=== PATIENT | male | born 1970 | race Caucasian/White ===

== ENCOUNTER 2021-03-27 20:11 | Inpatient (IN) | payer MEDICAID ==
[~2021-03-27] VITALS: Ht 182.9 cm; Wt 90.9 kg
[~2021-03-27 20:11] MED LIST: BACDS PO; CYCL-1 PO; HYDR-3965 PO; HYDR-4383 PO; HYDR1TAB PO; NO HOME MEDS; NORCO10T PO
--- NOTE | 2021-03-27 20:46 | NUR ---
Pt presents d/t sob, slurred speach, and left arm numbness x 3 days. Pt states "I got drunk 3 days ago and it messed me up." Pt AAOx4, no s/sx of acute distress noted at this time. Respirations even and unlabored. Will continue to monitor.
[2021-03-27 21:14] LABS: BASOPHILS # (AUTO) 0.1 X10'3 (0-0.2); BASOPHILS % (AUTO) 0.9 % (0-1); EOSINOPHILS # (AUTO) 0.2 X10'3 (0-0.9); HEMATOCRIT 51.8 % (42.0-52.0); HEMOGLOBIN 17.4 g/dl (14.0-17.9); LYMPHOCYTES # (AUTO) 2.2 X10'3 (1.1-4.8); LYMPHOCYTES % (AUTO) 25.7 % (21-51); MEAN CORPUSCULAR HGB CONC 33.6 g/dL (33.0-36.5); MEAN CORPUSCULAR VOLUME 95.5 FL (78-98); MEAN PLATELET VOLUME 8.1 FL (7.4-10.4); MONOCYTES # (AUTO) 1.1 X10'3 (0-0.9); MONOCYTES % (AUTO) 12.5 % (2-12); NEUTROPHILS % (AUTO) 58.9 % (42-75); PLATELET COUNT 288 X10'3 (140-440); RED BLOOD COUNT 5.42 X10'6 (4.70-6.10); RED CELL DISTRIBUTION WIDTH 13.9 % (11.5-14.5); WHITE BLOOD COUNT 8.5 X10'3 (4.5-11.0)
[2021-03-27 21:35] LABS: ALANINE AMINOTRANSFERASE 362 U/L (12-78); ALBUMIN 4.2 G/DL (3.4-5.0); ALBUMIN/GLOBULIN RATIO 1.1 (1.1-1.5); ALKALINE PHOSPHATASE 83 IU/L (46-116); ANION GAP 13 (8-16); ASPARTATE AMINO TRANSFERASE 214 U/L (10-37); BILIRUBIN,TOTAL 1.5 MG/DL (0.1-1.0); BLOOD UREA NITROGEN 20 MG/DL (7-18); BUN/CREATININE RATIO 17.1 (5.4-32.0); CALCIUM 9.6 MG/DL (8.5-10.1); CHLORIDE 104 MMOL/L (99-107); CREATININE 1.17 MG/DL (0.60-1.10); GLUCOSE 100 MG/DL (70-104); POTASSIUM 3.9 MMOL/L (3.5-5.1); SODIUM 141 MMOL/L (135-145); TOTAL CARBON DIOXIDE 23.9 MMOL/L (24-32); TOTAL PROTEIN 8.1 G/DL (6.4-8.2); eGFR 65 ML/MIN
--- NOTE | 2021-03-27 22:57 | NUR ---
BREAKING PRIMARY RN; WILL CONT TO MONITOR.
[2021-03-27] MEDS ORDERED: iohexol 350MG/ML 100ml bottle IV ONE (23:04)
[2021-03-27] MEDS ORDERED: atorvastatin 20mg tablet PO SCH (23:20)
[2021-03-27] MEDS ORDERED: aspirin 81mg tab.chew PO ONE (23:20)
[2021-03-27] MEDS ORDERED: atorvastatin 20mg tablet PO ONE (23:20)
[2021-03-27 23:41] LABS: CLARITY,URINE CLEAR (Clear); COLOR,URINE YELLOW (Yellow); GLUCOSE, URINE NEGATIVE (Neg); KETONES,URINE 40 mg/dl (Neg); LEUKOCYTE ESTERASE ,URINE NEGATIVE (Neg); NITRITES, URINE NEGATIVE (Neg); OCCULT BLOOD,URINE NEGATIVE (Neg); PROTEIN,URINE NEGATIVE (Neg); UA COLLECTION TYPE NON-SPECIFIED
[2021-03-28] VITALS (7 sets, daily range): BP systolic 139–167; BP diastolic 93–110
[2021-03-28] MEDS ORDERED: magnesium 2GM in 50ml NS 50 ML IV PRN (00:15)
[2021-03-28] MEDS ORDERED: acetaminophen 325mg tablet PO PRN (00:15)
[2021-03-28] MEDS ORDERED: mag hydrox/Alum hydrox/simeth 30ml oral suspension PO PRN (00:15)
[2021-03-28] MEDS ORDERED: ondansetron/PF 4mg/2ml inj IV PRN (00:15)
[2021-03-28] MEDS ORDERED: magnesium hydroxide 30ml (MOM) UD suspension PO PRN (00:15)
[2021-03-28] MEDS ORDERED: potassium Cl 20 mEq SR tablet PO PRN ×2 (00:15)
[2021-03-28] MEDS ORDERED: magnesium 4gm in 100ml NS 100 ML IV PRN (00:15)
[2021-03-28] MEDS ORDERED: potassium Cl 40MEQ/1/2NS 520ml 520 ML IV PRN ×2 (00:15)
--- NOTE | 2021-03-28 00:23 | NUR ---
BREAKING PRIMARY RN; WILL CONT TO MONITOR.
--- NOTE | 2021-03-28 00:40 | NUR ---
DR. HOLLEY AT BEDSIDE WITH PATIENT
[2021-03-28] MEDS ORDERED: haloperidol 5mg tablet PO PRN (01:20)
[2021-03-28] MEDS ORDERED: LORazepam 2 mg/ml vial IV PRN (01:20)
[2021-03-28] MEDS ORDERED: haloperidol lactate 5mg/ml inj IM PRN (01:20)
--- NOTE | 2021-03-28 06:30 | NUR ---
REPORT GIVEN TO PERCY WALTER.
[2021-03-28] MEDS: K and/or MAG REPLACEMENT MC SCH ×2 (08:00→20:00)
[2021-03-28] MEDS: aspirin 325mg tablet PO SCH (08:16)
[2021-03-28] MEDS: multivitamins, therapeutics tablet PO SCH (08:16)
[2021-03-28] MEDS: atorvastatin 20mg tablet PO SCH (08:16)
[2021-03-28] MEDS: thiamine 100mg tablet PO SCH (08:16)
[2021-03-28] MEDS: folic acid 1mg tablet PO SCH (08:16)
[2021-03-28 13:44] LABS: URINE AMPHETAMINE SCREEN POSITIVE (Neg); URINE BARBITUATE SCREEN NEGATIVE (Neg); URINE BENZODIAZEPINES SCREEN NEGATIVE (Neg); URINE CANNABINOID SCREEN POSITIVE (Neg); URINE COCAINE SCREEN NEGATIVE (Neg); URINE METHADONE SCREEN NEGATIVE (Neg); URINE OPIATE SCREEN NEGATIVE (Neg); URINE PHENCYCLIDINE SCREEN NEGATIVE (Neg)
--- NOTE | 2021-03-28 17:50 | NUR ---
Page to Dr Randall regarding elevated BP
--- NOTE | 2021-03-28 18:00 | NUR ---
Patient in room [facility]TH[facility] 4013. I have received report from Lakshmi GREER and had the opportunity to ask questions and assume patient care.
[2021-03-28] MEDS ORDERED: enoxaparin 40mg/0.4ml syringe SQ SCH (20:00)
--- NOTE | 2021-03-28 21:00 | NUR ---
glucose check 108
--- NOTE | 2021-03-29 00:17 | NUR ---
promotional table spacer PAGER ID: [phone] MESSAGE: Pt: Tanner Zarate Would you like to put something on PRN for pt's BP? Dav GREERhall manager/Neuro [id number]
[2021-03-29 02:00] VITALS: BP 154/104
[2021-03-29 05:29] VITALS: BP 141/98
--- NOTE | 2021-03-29 06:18 | NUR ---
Problems reprioritized. Patient report given, questions answered & plan of care reviewed with mary ellen lucas.
[2021-03-29 06:49] LABS: BASOPHILS % (AUTO) 0.6 % (0-1); EOSINOPHILS # (AUTO) 0.3 X10'3 (0-0.9); EOSINOPHILS % (AUTO) 3.7 % (0-6); HEMATOCRIT 49.6 % (42.0-52.0); HEMOGLOBIN 16.9 g/dl (14.0-17.9); LYMPHOCYTES # (AUTO) 1.8 X10'3 (1.1-4.8); LYMPHOCYTES % (AUTO) 24.2 % (21-51); MEAN CORPUSCULAR HEMOGLOBIN 32.1 PG (27.0-31.0); MEAN CORPUSCULAR HGB CONC 34.1 g/dL (33.0-36.5); MEAN CORPUSCULAR VOLUME 94.1 FL (78-98); MEAN PLATELET VOLUME 8.4 FL (7.4-10.4); MONOCYTES # (AUTO) 0.9 X10'3 (0-0.9); MONOCYTES % (AUTO) 11.7 % (2-12); NEUTROPHILS # (AUTO) 4.4 X10'3 (1.8-7.7); NEUTROPHILS % (AUTO) 59.8 % (42-75); PLATELET COUNT 260 X10'3 (140-440); RED BLOOD COUNT 5.27 X10'6 (4.70-6.10); RED CELL DISTRIBUTION WIDTH 13.8 % (11.5-14.5); WHITE BLOOD COUNT 7.3 X10'3 (4.5-11.0)
--- NOTE | 2021-03-29 06:51 | NUR ---
Patient in room ORTHO 4013B. I have received report from PERCY Demarco and had the opportunity to ask questions and assume patient care.
[2021-03-29 07:19] LABS: ALBUMIN 3.4 G/DL (3.4-5.0); ANION GAP 9 (8-16); BILIRUBIN,TOTAL 0.8 MG/DL (0.1-1.0); BLOOD UREA NITROGEN 18 MG/DL (7-18); BUN/CREATININE RATIO 20.2 (5.4-32.0); CALCIUM 8.9 MG/DL (8.5-10.1); CHLORIDE 105 MMOL/L (99-107); CREATININE 0.89 MG/DL (0.60-1.10); GLUCOSE 93 MG/DL (70-104); PHOSPHORUS 3.3 MG/DL (2.3-4.5); POTASSIUM 3.8 MMOL/L (3.5-5.1); SODIUM 139 MMOL/L (135-145); TOTAL CARBON DIOXIDE 24.9 MMOL/L (24-32); TOTAL PROTEIN 6.9 G/DL (6.4-8.2); eGFR 90 ML/MIN
[2021-03-29 07:20] LABS: ALANINE AMINOTRANSFERASE 289 U/L (12-78); ALKALINE PHOSPHATASE 69 IU/L (46-116); AMYLASE 68 U/L (25-115); ASPARTATE AMINO TRANSFERASE 161 U/L (10-37); CHOL/HDL RATIO 3.1 (0.00-4.99); CHOLESTEROL 137 MG/DL (0-200); HDL CHOLESTEROL 44 MG/DL (35-60); LDL CHOLESTEROL 78 MG/DL (50-100); LIPASE 295 U/L (73-393); TRIGLYCERIDES 66 MG/DL (20-135)
[2021-03-29] MEDS: thiamine 100mg tablet PO SCH (07:36)
[2021-03-29] MEDS: multivitamins, therapeutics tablet PO SCH (07:36)
[2021-03-29] MEDS: aspirin 325mg tablet PO SCH (07:36)
[2021-03-29] MEDS: folic acid 1mg tablet PO SCH (07:37)
[2021-03-29] MEDS: atorvastatin 20mg tablet PO SCH (07:37)
[2021-03-29] MEDS: K and/or MAG REPLACEMENT MC SCH (08:00)
--- NOTE | 2021-03-29 08:38 | NUR ---
PAGER ID: [phone] MESSAGE: [phone] Pope anxious to go home! JOSE ANGEL [phone]
[2021-03-29 10:00] VITALS: BP 126/89
[2021-03-29] MEDS ORDERED: CLOP75TA15 PO (12:07)
[2021-03-29] MEDS ORDERED: ASPI81TA52 PO (12:07)
[2021-03-29] MEDS ORDERED: ATOR20TA PO (12:07)
--- NOTE | 2021-03-29 12:15 | NUR ---
D/C instructions given to pt, questions answered. Belongings gathered by pt and sent home with pt. IV d/c'd, cannula intact, no complications. D/C'd pt in stable condition to home in private vehicle. Pt left floor at 1215
[2021-03-30] MEDS ORDERED: LORazepam 1 MG tablet PO PRN (01:20)
[2021-03-30] MEDS ORDERED: LORazepam 2 mg/ml vial IV PRN (01:20)
--- NOTE | 2021-03-30 14:40 | NUR ---
CASE MANAGEMENT DISCHARGE FOLLOW UP: Spoke with pt's , Darcy, via telephone as pt is currently not available. Reports that pt is doing great; denies all defecits, bleeding, headache. Verbalizes understanding of s/sx requiring further evaluation/emergent assistance. Verbalizes understanding of medications. Verbalizes understanding of the importance in making/keeping follow-up appointments, she states that they are trying to get a copy of pt's [employer] insurance card so that pt can establish care with PCP, will seek urgent care if needed to get refill on medications to prevent future CVA. States no further questions/concerns at this time, will have pt call if he has any questions.
[2021-04-01] MEDS ORDERED: LORazepam 1 MG tablet PO PRN (01:20)
[2021-04-01] MEDS ORDERED: LORazepam 2 mg/ml vial IV PRN (01:20)
== END 2021-03-29 12:15 | disposition home or self-care (01) | DRG 45 ==
LOC: ER 20:12 → ED HOLD 03-28 00:12 → ORTHO 4S 03-28 02:11
PROVIDERS: ADMIT Family Medicine; ATTEND Family Medicine
PROC: B3251ZZ Computerized Tomography (CT Scan) of Bilateral Common Carotid Arteries using Low Osmolar Contrast (ICD-10-PCS; principal; 2021-03-27)
PROC: B32G1ZZ Computerized Tomography (CT Scan) of Bilateral Vertebral Arteries using Low Osmolar Contrast (ICD-10-PCS; 2021-03-27)
PROC: B32R1ZZ Computerized Tomography (CT Scan) of Intracranial Arteries using Low Osmolar Contrast (ICD-10-PCS; 2021-03-27)
PROC: B3281ZZ Computerized Tomography (CT Scan) of Bilateral Internal Carotid Arteries using Low Osmolar Contrast (ICD-10-PCS; 2021-03-27)
DX: I63.9 Cerebral infarction, unspecified (principal); N17.0 Acute kidney failure with tubular necrosis; G89.29 Other chronic pain; M54.9 Dorsalgia, unspecified; I10 Essential (primary) hypertension; B19.20 Unspecified viral hepatitis C without hepatic coma; F12.90 Cannabis use, unspecified, uncomplicated; F17.210 Nicotine dependence, cigarettes, uncomplicated; R74.01 Elevation of levels of liver transaminase levels; F10.20 Alcohol dependence, uncomplicated; F15.90 Other stimulant use, unspecified, uncomplicated; Z79.82 Long term (current) use of aspirin; Z80.42 Family history of malignant neoplasm of prostate; Z82.3 Family history of stroke; Z82.49 Family history of ischemic heart disease and other diseases of the circulatory system; Z88.5 Allergy status to narcotic agent; Z71.6 Tobacco abuse counseling
CPT/HCPCS: 36415; 70450; 70496; 70498; 70551; 71045; 80053; 80061; 80305; 81003; 82150; 82948; 83605; 83690; 83735; 83880; 84100; 84484; 85025; 85610; 87040; 87081; 92508; 92616; 93005; 93306; 96365; 97116; 97162; 97530; 99285; G0378; J1650; Q9967

== ENCOUNTER 2022-01-07 21:32 | Inpatient (IN) | payer MEDICAID ==
[~2022-01-07] VITALS: Ht 188 cm; Wt 75.0 kg
[~2022-01-07 21:32] MED LIST changes: +ATOR20TA PO; -BACDS PO; +CLOP75TA15 PO; -CYCL-1 PO; -HYDR-3965 PO; -HYDR-4383 PO; -HYDR1TAB PO; -NO HOME MEDS; -NORCO10T PO
[2022-01-07] MEDS ORDERED: aspirin 325mg tablet PO ONE (22:00)
[2022-01-07] MEDS ORDERED: LISI20TA28 PO (22:25)
[2022-01-07 22:33] LABS: BASOPHILS # (AUTO) 0.1 X10'3 (0-0.2); BASOPHILS % (AUTO) 0.5 % (0-1); EOSINOPHILS # (AUTO) 0.1 X10'3 (0-0.9); EOSINOPHILS % (AUTO) 1.2 % (0-6); HEMATOCRIT 42.5 % (42.0-52.0); HEMOGLOBIN 14.2 g/dl (14.0-17.9); LYMPHOCYTES # (AUTO) 1.9 X10'3 (1.1-4.8); LYMPHOCYTES % (AUTO) 16.5 % (21-51); MEAN CORPUSCULAR HGB CONC 33.3 g/dL (33.0-36.5); MEAN PLATELET VOLUME 7.5 FL (7.4-10.4); MONOCYTES # (AUTO) 1.7 X10'3 (0-0.9); MONOCYTES % (AUTO) 14.2 % (2-12); NEUTROPHILS % (AUTO) 67.6 % (42-75); PLATELET COUNT 515 X10'3 (140-440); RED BLOOD COUNT 4.57 X10'6 (4.70-6.10); RED CELL DISTRIBUTION WIDTH 13.7 % (11.5-14.5); WHITE BLOOD COUNT 11.8 X10'3 (4.5-11.0)
[2022-01-07 22:37] LABS: APTT 28 SECONDS (22-32)
[2022-01-07 22:58] LABS: ALANINE AMINOTRANSFERASE 148 U/L (12-78); ALBUMIN 2.8 G/DL (3.4-5.0); ALBUMIN/GLOBULIN RATIO 0.7 (1.1-1.5); ALKALINE PHOSPHATASE 96 IU/L (46-116); ANION GAP 9 (8-16); ASPARTATE AMINO TRANSFERASE 114 U/L (10-37); BILIRUBIN,TOTAL 0.5 MG/DL (0.1-1.0); BLOOD UREA NITROGEN 11 MG/DL (7-18); BUN/CREATININE RATIO 12.6 (5.4-32.0); CHLORIDE 104 MMOL/L (99-107); CREATININE 0.87 MG/DL (0.60-1.10); GLUCOSE 122 MG/DL (70-104); POTASSIUM 3.3 MMOL/L (3.5-5.1); SODIUM 139 MMOL/L (135-145); TOTAL CARBON DIOXIDE 25.7 MMOL/L (24-32); TOTAL PROTEIN 6.7 G/DL (6.4-8.2); eGFR > 90 ML/MIN
[2022-01-07] MEDS ORDERED: metoprolol tartrate 1mg/ml inj IV PRN (23:50)
[2022-01-07] MEDS ORDERED: magnesium 2GM in 50ml NS 50 ML IV PRN (23:50)
[2022-01-07] MEDS ORDERED: potassium Cl 20 mEq SR tablet PO PRN ×2 (23:50)
[2022-01-07] MEDS ORDERED: PERFLUTREN PROTEIN-A MICROSPHR (Optison) 0.22 MG/ML 3ML VIAL IV PRN (23:50)
[2022-01-07] MEDS ORDERED: HYDROcodone/acetaminophen 5mg/325mg tablet PO PRN (23:50)
[2022-01-07] MEDS ORDERED: HYDROcodone/acetaminophen 10/325mg tab PO PRN (23:50)
[2022-01-07] MEDS ORDERED: aminophylline 250mg/10ml inj. IV PRN (23:50)
[2022-01-07] MEDS ORDERED: ondansetron/PF 4mg/2ml inj IV PRN (23:50)
[2022-01-07] MEDS ORDERED: potassium CL 10mEq/100ml bag 100 ML IV PRN (23:50)
[2022-01-07] MEDS ORDERED: acetaminophen 325mg tablet PO PRN ×2 (23:50)
[2022-01-07] MEDS ORDERED: LORazepam 2 mg/ml vial IV PRN (23:50)
[2022-01-07] MEDS ORDERED: morphine 2 MG/ML inj. syringe IV PRN ×2 (23:50)
[2022-01-07] MEDS ORDERED: normal saline 1000ml 1,000 ML IV SCH (23:50)
[2022-01-07] MEDS ORDERED: magnesium Cl slow-release 64mg tablet PO PRN (23:50)
[2022-01-07] MEDS ORDERED: dextrose 50%-water 50ml dispensing syringe IV PRN (23:50)
[2022-01-07] MEDS ORDERED: nitroGLYCERIN 0.4mg SUBLingual tab SL PRN (23:50)
[2022-01-07] MEDS ORDERED: LORazepam 1 MG tablet PO PRN (23:50)
[2022-01-07] MEDS ORDERED: regadenoson 0.4mg/5ml syringe IV PRN (23:50)
[2022-01-07] MEDS ORDERED: magnesium 4gm in 100ml NS 100 ML IV PRN (23:50)
[2022-01-08 00:11] LABS: ETHANOL < 0.010 GM/DL (0.0-0.010)
[2022-01-08 03:02] LABS: URINE AMPHETAMINE SCREEN POSITIVE (Neg); URINE BARBITUATE SCREEN NEGATIVE (Neg); URINE BENZODIAZEPINES SCREEN NEGATIVE (Neg); URINE CANNABINOID SCREEN POSITIVE (Neg); URINE COCAINE SCREEN NEGATIVE (Neg); URINE METHADONE SCREEN NEGATIVE (Neg); URINE OPIATE SCREEN NEGATIVE (Neg); URINE PHENCYCLIDINE SCREEN NEGATIVE (Neg)
[2022-01-08 04:08] LABS: BASOPHILS % (AUTO) 0.6 % (0-1); EOSINOPHILS # (AUTO) 0.1 X10'3 (0-0.9); EOSINOPHILS % (AUTO) 1.6 % (0-6); HEMATOCRIT 39.4 % (42.0-52.0); HEMOGLOBIN 13.3 g/dl (14.0-17.9); LYMPHOCYTES # (AUTO) 1.7 X10'3 (1.1-4.8); LYMPHOCYTES % (AUTO) 20.7 % (21-51); MEAN CORPUSCULAR HEMOGLOBIN 31.5 PG (27.0-31.0); MEAN CORPUSCULAR HGB CONC 33.7 g/dL (33.0-36.5); MEAN CORPUSCULAR VOLUME 93.3 FL (78-98); MEAN PLATELET VOLUME 7.6 FL (7.4-10.4); MONOCYTES # (AUTO) 1.1 X10'3 (0-0.9); MONOCYTES % (AUTO) 13.3 % (2-12); NEUTROPHILS # (AUTO) 5.3 X10'3 (1.8-7.7); NEUTROPHILS % (AUTO) 63.8 % (42-75); PLATELET COUNT 456 X10'3 (140-440); RED BLOOD COUNT 4.22 X10'6 (4.70-6.10); RED CELL DISTRIBUTION WIDTH 13.7 % (11.5-14.5); WHITE BLOOD COUNT 8.3 X10'3 (4.5-11.0)
[2022-01-08 04:33] LABS: ALANINE AMINOTRANSFERASE 135 U/L (12-78); ALBUMIN 2.5 G/DL (3.4-5.0); ALBUMIN/GLOBULIN RATIO 0.7 (1.1-1.5); ALKALINE PHOSPHATASE 88 IU/L (46-116); ANION GAP 7 (8-16); ASPARTATE AMINO TRANSFERASE 100 U/L (10-37); BILIRUBIN,TOTAL 0.6 MG/DL (0.1-1.0); BLOOD UREA NITROGEN 9 MG/DL (7-18); BUN/CREATININE RATIO 11.1 (5.4-32.0); CALCIUM 8.6 MG/DL (8.5-10.1); CHLORIDE 107 MMOL/L (99-107); CHOL/HDL RATIO 3.4 (0.00-4.99); CHOLESTEROL 93 MG/DL (0-200); CREATININE 0.81 MG/DL (0.60-1.10); GLUCOSE 94 MG/DL (70-104); HDL CHOLESTEROL 27 MG/DL (35-60); LDL CHOLESTEROL 60 MG/DL (50-100); POTASSIUM 3.4 MMOL/L (3.5-5.1); SODIUM 142 MMOL/L (135-145); TOTAL CARBON DIOXIDE 27.8 MMOL/L (24-32); TOTAL PROTEIN 6.3 G/DL (6.4-8.2); TRIGLYCERIDES 47 MG/DL (20-135); eGFR > 90 ML/MIN
[2022-01-08] MEDS ORDERED: pantoprazole 40mg Tablet.DR PO SCH (07:30)
[2022-01-08] MEDS ORDERED: lisinopril 20mg tablet PO SCH (08:00)
[2022-01-08] MEDS ORDERED: nicotine 14mg patch - 24hr TD SCH (08:00)
[2022-01-08] MEDS ORDERED: K and/or MAG REPLACEMENT MC SCH (08:00)
--- NOTE | 2022-01-08 08:28 | NUR ---
PT WANTS TO GO HOME AMA. PT STATES, "LAST NIGHT MY NEPHEW GAVE ME SOME TEA AND THINKS SOMETHING WAS PUT IN IT" STATES, " I FELT FUNNY AFTER I DRANK IT."
--- NOTE | 2022-01-08 08:55 | NUR ---
SPOKE W/DR. HARRISON REGARDING PT REQUEST TO LEAVE AMA. AWARE. DISCUSSED RISKS OF LEAVING AMA W/ PT AND PT VERBALIZED UNDERSTANDING.
--- NOTE | 2022-01-08 09:00 | NUR ---
DISCUSSED W/PT AGAIN EXPLAINING RISKS OF LEAVING AMA. EXPLAINED THAT AT THIS TIME WE HAVE NOT BEEN ABLE TO RULE OUT STROKE. PT STATES "IM NOT HAVING A STROKE AND I HAVE THINGS TO DO." PT STATED HE UNDERSTANDS OUR CONCERNS BUT NEEDS TO GO. PT SIGNED AMA AND WAS TOLD TO COME BACK IF HE NEEDS TO SEEK MEDICAL ATTENTION.
[2022-01-08 09:22] VITALS: BP 146/99
--- NOTE | 2022-01-08 09:37 | NUR ---
pt is leaving AMA, stress test is cancelled
[2022-01-12] MEDS ORDERED: thiamine 100mg tablet PO SCH (08:00)
[2022-01-12] MEDS ORDERED: folic acid 1mg tablet PO SCH (08:00)
== END 2022-01-08 09:25 | disposition left against medical advice (07) | DRG 58 ==
LOC: ER 21:33 → ED HOLD 23:55
PROVIDERS: ADMIT Internal Medicine; ATTEND Family Medicine
DX: R29.810 Facial weakness (principal); B19.20 Unspecified viral hepatitis C without hepatic coma; F15.90 Other stimulant use, unspecified, uncomplicated; Z20.822 Contact with and (suspected) exposure to COVID-19; Z66 Do not resuscitate; R07.9 Chest pain, unspecified; F17.210 Nicotine dependence, cigarettes, uncomplicated; I10 Essential (primary) hypertension; Z53.29 Procedure and treatment not carried out because of patient's decision for other reasons; F12.90 Cannabis use, unspecified, uncomplicated; G89.29 Other chronic pain; M54.9 Dorsalgia, unspecified; Z86.73 Personal history of transient ischemic attack (TIA), and cerebral infarction without residual deficits; Z88.5 Allergy status to narcotic agent
CPT/HCPCS: 36415; 70450; 71045; 80053; 80061; 80305; 80320; 83605; 83880; 84484; 85025; 85610; 85730; 87040; 87635; 93005; 96360; 99285; C9803; G0378; J7030

== ENCOUNTER → 2025-01-07 | Outpatient (CLI) | payer MEDICAID ==
[~2025-01-07] MED LIST changes: -ATOR20TA PO; -CLOP75TA15 PO; +LISI20TA28 PO
[2025-01-07 08:54] LABS: BASOPHILS # (AUTO) 0.1 X10'3 (0-0.2); BASOPHILS % (AUTO) 0.8 % (0-1); EOSINOPHILS # (AUTO) 0.3 X10'3 (0-0.9); EOSINOPHILS % (AUTO) 2.5 % (0-6); HEMATOCRIT 49.2 % (42.0-52.0); HEMOGLOBIN 16.6 g/dl (14.0-17.9); LYMPHOCYTES # (AUTO) 2.7 X10'3 (1.1-4.8); LYMPHOCYTES % (AUTO) 23.8 % (21-51); MEAN CORPUSCULAR HEMOGLOBIN 31.6 PG (27.0-31.0); MEAN CORPUSCULAR HGB CONC 33.7 g/dL (33.0-36.5); MEAN CORPUSCULAR VOLUME 93.6 FL (78-98); MEAN PLATELET VOLUME 7.6 FL (7.4-10.4); MONOCYTES % (AUTO) 8.7 % (2-12); NEUTROPHILS # (AUTO) 7.2 X10'3 (1.8-7.7); NEUTROPHILS % (AUTO) 64.2 % (42-75); PLATELET COUNT 355 X10'3 (140-440); RED BLOOD COUNT 5.26 X10'6 (4.70-6.10); RED CELL DISTRIBUTION WIDTH 13.7 % (11.5-14.5); WHITE BLOOD COUNT 11.2 X10'3 (4.5-11.0)
[2025-01-07 09:09] LABS: ALANINE AMINOTRANSFERASE 73 U/L (12-78); ALBUMIN 4.1 G/DL (3.4-5.0); ALBUMIN/GLOBULIN RATIO 1.1 (1.1-1.5); ALKALINE PHOSPHATASE 84 IU/L (46-116); ANION GAP 5 (8-16); ASPARTATE AMINO TRANSFERASE 34 U/L (10-37); BILIRUBIN,TOTAL 0.5 MG/DL (0.1-1.0); BLOOD UREA NITROGEN 31 MG/DL (7-18); BUN/CREATININE RATIO 15.2 (10.0-20.0); CALCIUM 9.5 MG/DL (8.5-10.1); CHLORIDE 103 MMOL/L (99-107); CREATININE 2.04 MG/DL (0.60-1.10); GLUCOSE 87 MG/DL (70-104); POTASSIUM 4.1 MMOL/L (3.5-5.1); SODIUM 138 MMOL/L (135-145); TOTAL CARBON DIOXIDE 29.8 MMOL/L (24-32); TOTAL PROTEIN 7.8 G/DL (6.4-8.2); eGFR 34 ML/MIN
[2025-01-07 09:10] LABS: % IRON SATURATION 29 % (11-46); IRON 95 UG/DL (53-167); TOTAL IRON BINDING CAPACITY 333 UG/DL (259-388)
[2025-01-07 09:14] LABS: CHOL/HDL RATIO 4.3 (0.00-4.99); CHOLESTEROL 233 MG/DL (0-200); FERRITIN 123 NG/ML (26-388); FREE T4 (FREE THYROXINE) 0.84 NG/DL (0.73-1.40); HDL CHOLESTEROL 54 MG/DL (35-60); LDL CHOLESTEROL 151 MG/DL (50-100); THYROID STIMULATING HORMONE 1.28 ulU/ml (0.34-4.50); TRIGLYCERIDES 141 MG/DL (20-135)
[2025-01-07 09:50] LABS: HEMOGLOBIN A1C 5.7 % (4.5-6.2)
[2025-01-08 06:34] LABS: HEPATITIS C VIRUS ANTIBODY Reactive (Non Reactive)
[2025-01-08 07:59] LABS: VITAMIN D, 25-HYDROXY 23.8 ng/mL (30.0-100.0)
[2025-01-08 08:14] LABS: FOLATE SERUM(FOLIC) 8.1 ng/mL (>3.0)
== END | disposition home or self-care (01) ==
LOC: RAD 08:06
PROVIDERS: ATTEND Nurse Practitioner Family
DX: R79.89 Other specified abnormal findings of blood chemistry (principal); E78.5 Hyperlipidemia, unspecified; R68.89 Other general symptoms and signs; M85.80 Other specified disorders of bone density and structure, unspecified site; I10 Essential (primary) hypertension; D51.9 Vitamin B12 deficiency anemia, unspecified; E11.9 Type 2 diabetes mellitus without complications; E55.9 Vitamin D deficiency, unspecified; R94.6 Abnormal results of thyroid function studies
CPT/HCPCS: 36415; 80053; 80061; 82306; 82607; 82728; 82746; 83036; 83540; 83550; 84439; 84443; 85025; 86803; 87522

== ENCOUNTER 2025-07-16 22:59 | Emergency (ER) | payer MEDICAID ==
[~2025-07-16] VITALS: Ht 182.9 cm; Wt 77.3 kg
[2025-07-16 23:06] VITALS: TEMP 97.5
--- NOTE | 2025-07-16 23:21 | Physician Documentation ---
History of Present Illness ~ General Chief Complaint: See Chief Complaint Stated Complaint: STROKE SYMPTOMS Time Seen by MD: 23:19 Primary Medical Doctor: NONE History of Present Illness Initial Comments Patient presents to the emergency room for evaluation of generalized body aches headache mild diarrhea nausea and also some facial paresthesias. He states he has some numbness around his mouth but denies any weakness or asymmetry of the mouth in his speaking clearly. Patient's history is complicated because of recent stroke. Medication Reconciliation Allergies: Coded Allergies: codeine (Verified Allergy, Mild, 08/18/17) ITCH Scheduled Lisinopril (Lisinopril), 1 TAB PO DAILY, (Reported) Past Medical History Past Medical History: Hepatitis C, Hernia, Chronic Back Pain Past Surgical History: abdominal surgery, other Other Past Surgical History: right groin Patient History: FH: heart attack Maternal grandfather FH: prostate cancer Paternal grandfather FH: stroke Paternal grandfather Alcohol Use: Occasionally Drug Use: marijuana, methamphetamine Lives In: Home Review of Systems ROS All review of systems negative except as per HPI Physical Exam Physical Exam Vital Signs: Temperature: 97.5, Source: Temporal, Heart Rate: 71, Respiratory Rate: 18, BP: 134/84, Pulse Oximetry: 98, Weight: 77.270 Physical Exam General: Patient is awake, alert, oriented x4 in no acute distress Head: Normocephalic and atraumatic. Eyes: Conjunctival normal. EOMI. PERRL. ENT: Mucous membranes moist. Neck: Supple, trachea is midline. Chest: Clear to auscultation bilaterally without rales, rhonchi, or wheezes. There is no accessory muscle use or retractions. Cardiac: RRR without murmurs, gallops, or rubs. Abd: Soft, nondistended, nontender, with normoactive bowel sounds. No guarding, rebound, or rigidity. Neuro: Cranial nerves II-XII grossly intact. No focal neuro deficits. Progress Results/Orders Results/Orders Orders - REBEL GREGORIO MD Chest,Single View (07/16/25 23:24) Monitor (07/16/25 23:24) Saline Lock (07/16/25 23:24) Oxygen (07/16/25 23:24) Hs Troponin I W Calculations (07/17/25 02:24) Covid19 Binax Poc Result Entry (07/17/25 00:54) Completed Orders - REBEL GREGORIO MD Chest,Single View (07/16/25 23:24) Cbc/Diff (07/16/25 23:24) BMP (07/16/25 23:24) PBNP (07/16/25 23:24) Electrocardiogram (07/16/25 23:24) Hs Troponin I W Calculations (07/16/25 23:24) Hs Troponin I W Calculations (07/17/25 01:24) Ondansetron Disint. Tablet (Zofran Odt T (07/17/25 00:55) Acetaminophen 325mg Tablet (Tylenol Tabl (07/17/25 00:55) Vital Signs 07/16/25 07/17/25 07/17/25 07/17/25 23:06 00:10 01:11 02:47 Temp 97.5 Pulse 71 73 81 Resp 18 18 17 15 B/P (MAP) 134/84 124/84 (97) 131/80 (97) Pulse Ox 98 98 99 O2 Flow Rate 0 0 Laboratory Tests Test 07/16/25 23:35 07/17/25 01:05 07/17/25 01:54 White Blood Count 14.4 H Red Blood Count 4.97 Hemoglobin 15.6 Hematocrit 45.3 Mean Corpuscular Volume 91.1 Mean Corpuscular Hemoglobin 31.4 H Mean Corpuscular Hemoglobin Concent 34.5 Red Cell Distribution Width 13.4 Platelet Count 300 Mean Platelet Volume 7.8 Neutrophils (%) (Auto) 80.4 H Lymphocytes (%) (Auto) 11.3 L Monocytes (%) (Auto) 6.7 Eosinophils (%) (Auto) 1.3 Basophils (%) (Auto) 0.3 Neutrophils # (Auto) 11.6 H Lymphocytes # (Auto) 1.6 Monocytes # (Auto) 1.0 H Eosinophils # (Auto) 0.2 Basophils # (Auto) 0.0 CBC Comment Sodium Level 138 Potassium Level 3.6 Chloride Level 103 Carbon Dioxide Level 24.4 Anion Gap 11 Blood Urea Nitrogen 27 H Creatinine 1.94 H Estimated GFR/1.73 m2 36 BUN/Creatinine Ratio 13.9 Glucose Level 107 H Calcium Level 9.3 Troponin I High Sensitivity 9 11 Pro-B-Type Natriuretic Peptide 81 Albumin 3.9 Chemistry Comments SARS-CoV-2 Antigen (Rapid) Negative Troponin I High Sens Percent Delta 22 Troponin I Hi Sens Absolute Change 2 Medical Decision Making Findings While awaiting for patient's results he eloped. Departure Disposition: 07 LEFT AWOL/ELOPED Impression: Primary Impression: Suspected viral syndrome Referrals: NO PRIMARY CARE PROVIDER (PCP) Signature Scribe Signature: No scribe Attestation: The note accurately reflects work and decisions made by me.Rebel Gregorio MD 07/18/25 01:51 REBEL GREGORIO MD Jul 16, 2025 23:21
--- NOTE | 2025-07-16 23:45 | RADIOLOGY REPORT ---
CHEST RADIOGRAPH Indication: CP Technique: 1 view Comparison: CHEST,SINGLE VIEW on DOS: 01/07/22, CHEST,SINGLE VIEW on DOS: 03/27/21 FINDINGS: Lines and Tubes: None Lungs/Pleura: No focal consolidation, pleural effusion or pneumothorax. Mild scarring/atelectasis in the left lung base. Right mid lung 2.3 cm nodule, previously 2 cm on 01/07/2022 Cardiomediastinum: Unremarkable. Other: No acute osseous abnormality. IMPRESSION: 1. No acute cardiopulmonary abnormality. 2. Slight interval enlargement of the right midlung nodule from 3.5 years prior, may be attributable to differences in technique/projection or minimal interval growth. Consider follow-up outpatient ches t CT if this nodule has not been previously characterized.
[2025-07-16 23:57] LABS: MEAN PLATELET VOLUME 7.8 FL (7.4-10.4); RED CELL DISTRIBUTION WIDTH 13.4 % (11.5-14.5)
[2025-07-17 00:33] LABS: CREATININE 1.94 MG/DL (0.60-1.10); PRO BRAIN NATRIURETIC PEPTIDE 81 PG/ML (0-125); TOTAL CARBON DIOXIDE 24.4 MMOL/L (24-32); eCRCL 46 ML/MIN; eGFR 36 ML/MIN
[2025-07-17] MEDS: ondansetron 4mg rapidly disintigrating tab PO ONE (01:04)
[2025-07-17 01:11] VITALS: BP 131/80; PULSE 81; O2SAT 99
[2025-07-17 02:47] VITALS: RESP 15
--- NOTE | 2025-07-17 06:25 | ELECTROCARDIOGRAPH REPORT ---
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
== END 2025-07-17 02:53 | disposition left against medical advice (07) ==
LOC: ER 22:59
DX: R51.9 Headache, unspecified (principal); R19.7 Diarrhea, unspecified; F12.90 Cannabis use, unspecified, uncomplicated; F15.90 Other stimulant use, unspecified, uncomplicated; Z86.73 Personal history of transient ischemic attack (TIA), and cerebral infarction without residual deficits; Z88.5 Allergy status to narcotic agent; Z86.19 Personal history of other infectious and parasitic diseases; Z79.899 Other long term (current) drug therapy; Z72.89 Other problems related to lifestyle; Z20.822 Contact with and (suspected) exposure to COVID-19
CPT/HCPCS: 36415; 71045; 80048; 83880; 84484; 85025; 87811; 93005; 99285